=== PATIENT | female | born 2000 | race Caucasian/White ===

== ENCOUNTER 2022-05-22 11:49 | Emergency (ER) | payer SELFPAY ==
--- NOTE | ~2022-05-22 | CT_ITS ---
EXAMINATION: CT abdomen pelvis w con INDICATION: Upper abdominal pain TECHNIQUE: Computed tomographic images of the abdomen and pelvis were obtained after the administrati on of 100 cc of Omnipaque 350 intravenous contrast. The dose-length product (DLP) was 359.96 mGy-cm. Automated exposure control and iterative reconstruction technique were employed. COMPARISON: None available FINDINGS: The lung bases are clear. The heart size is normal. The liver, spleen, pancreas, gallbladde r, and adrenal glands are normal. The kidneys are unremarkable. No pathologically enlarged abdominal or pelvic lymph nodes are identified. There is no free intraperitoneal gas or evidence of bowel obstr uction. The appendix is normal. A contraceptive device is noted in the vagina. IMPRESSION: 1. No CT correlate for the patient's symptoms. Reviewed, dictated and finalized at location A.
[2022-05-22 11:53] VITALS: BP 122/93; PULSE 98; RESP 18; TEMP 36.3; O2SAT 100
[2022-05-22] MEDS: PANTOPRAZOLE SODIUM IV 40 MG VIAL IV PUSH (12:58)
[2022-05-22] MEDS: LACTATED RINGERS 1,000 ML 999 ML IV CONT (12:58)
[2022-05-22] MEDS: ONDANSETRON INJ 4 MG/2 ML VIAL IV PUSH (12:58)
--- NOTE | 2022-05-22 13:05 | ED.GENADULT ---
HPI - General Adult General Chief complaint: Back Pain/Injury Stated complaint: back pain Time Seen by Provider: 05/22/22 12:22 Source: patient Mode of arrival: ambulatory Limitations: no limitations History of Present Illness HPI narrative: This is a 22 year old female who presents for evaluation of abdominal pain. She states on wednesday she developed body aches, sore throat, nausea, vomiting and diarrhea. She went to urgent care yesterday and she was started on Amoxicillin for tonsillitis. Today she developed bilateral flank pain with hot flashes. She reports 2 episodes of diarrhea today but she denies vomiting today. She denies sick contacts. Related Data Allergies Allergy/AdvReac Type Severity Reaction Status Date / Time No Known Allergies Allergy Verified 05/22/22 12:34 Review of Systems Review of Systems: All systems reviewed & are unremarkable except as noted in HPI and below Constitutional: Constitutional: Reports chills and Reports fatigue ENT: Denies dizziness and Reports sore throat Gastrointestinal: Gastrointestinal: Reports abdominal pain, Reports diarrhea, Reports nausea and Reports vomiting Musculoskeletal: Musculoskeletal: Reports myalgias PMFSH Past Medical History Medical History (Updated 05/22/22 @ 16:44 by Mitra Mattson MD) Patient denies medical problems Surgical History Surgical History (Updated 05/22/22 @ 13:07 by Mitra Mattson MD) [facility] Social History Social History (Updated 05/22/22 @ 13:08 by Mitra Mattson MD) Smoking status: Never smoker Exam Narrative: GENERAL: Well-appearing, well-nourished, and in no acute distress. HEAD: Normocephalic, atraumatic EYES: PERRLA and EOMI, conjunctiva clear without discharge EARS: TM's clear bilaterally without erythema or dullness NOSE: Nares clear, no rhinorrhea or epistaxis THROAT:Mucous membranes moist, bilateral tonsillar enlargement with exudate, uvula midline NECK: Supple, without lymphadenopathy or mass RESPIRATORY: No respiratory distress, Airway patent, Respirations non-labored, Clear to auscultation without rales, rhonchi or wheeze HEART: Regular rate and rhythm. No murmur heard. Normal peripheral pulses. ABDOMEN: Soft, nontender, nondistended, normal active bowel sounds. No masses. No rebound or guarding, No organomegaly. EXTREMITIES: No edema, normal strength with full range of motion. SKIN: Warm, dry, normal color without rash NEURO: Alert and oriented x3. CN 2-12 grossly intact. No focal deficits. PSYCH: Normal mood and affect. Course Reevaluation(s) Reevaluation #1: Patients labs and testing are unremarkable. She is able to tolerate PO Date: 05/22/22 Time: 16:42 Vital Signs Vital signs: Vital Signs Temperature 97.4 F L 05/22/22 11:53 Pulse Rate 98 05/22/22 11:53 Respiratory Rate 18 05/22/22 11:53 Blood Pressure 122/93 H 05/22/22 11:53 Pulse Oximetry 100 05/22/22 11:53 Temperature 97.4 F L 05/22/22 11:53 Pulse Rate 80 05/22/22 16:30 Respiratory Rate 18 05/22/22 16:30 Blood Pressure 118/77 05/22/22 16:30 Pulse Oximetry 99 05/22/22 16:30 Medical Decision Making Vital Signs Vital Signs: Vital Signs Temperature 97.4 F L 05/22/22 11:53 Pulse Rate 98 05/22/22 11:53 Respiratory Rate 18 05/22/22 11:53 Blood Pressure 122/93 H 05/22/22 11:53 Pulse Oximetry 100 05/22/22 11:53 Temperature 97.4 F L 05/22/22 11:53 Pulse Rate 80 05/22/22 16:30 Respiratory Rate 18 05/22/22 16:30 Blood Pressure 118/77 05/22/22 16:30 Pulse Oximetry 99 05/22/22 16:30 Lab Data Lab results reviewed: Yes I reviewed the patient's lab results. Result diagrams: 05/22/22 12:07 05/22/22 12:07 Labs: Lab Results 05/22/22 05/22/22 05/22/22 Range/Units 12:07 12:07 13:15 WBC 8.6 (4.5-10.0) K/mm3 RBC 4.49 (4.2-5.4) M/mm3 Hgb 12.9 (12.0-15.0) g/dL Hct 39.8 (37.0-47.0) %
[2022-05-22 13:13] LABS: Alanine Aminotransferase 15 U/L (6-35); Albumin Level 4.2 g/dL (3.5-5.1); Alkaline Phosphatase 57 U/L (38-126); Anion Gap 16 mmol/L (8-16); Aspartate Amino Transferase 18 U/L (14-36); Bilirubin,Total 0.2 mg/dL (0.2-1.3); Blood Urea Nitrogen 7 mg/dL (7-17); Carbon Dioxide 23 mmol/L (22-30); Chloride 103 mmol/L (98-107); Estimated CRCL calculation 94 ml/min; Estimated Glomerular Filt Rate > 60; Glucose 103 mg/dL (65-110); Lipase 22 U/L (23-300); Potassium 4.1 mmol/L (3.4-5.0); Sodium 142 mmol/L (137-145)
[2022-05-22 13:47] LABS: Appearance Urine Clear (Clear); Bilirubin Urine Negative (Negative); Blood Urine Negative (Negative); Color Urine Yellow (Yellow); Glucose Urine UA Negative (Negative); Ketones Urine Negative (Negative); Leukocyte Esterase Ur Trace LEU/UL (Negative); Nitrate Urine Negative (Negative); Protein Urine Negative (Negative); Urobilinogen Urine 0.2 mg/dL (<2.0); pH Urine 6.5 (5.0-9.0)
[2022-05-22 13:47] LABS: Basophils Percent Auto 0.3 % (0.2-1.2); Eosinophils Percent Auto 0.1 % (0-4.4); Hematocrit 39.8 % (37.0-47.0); Hemoglobin 12.9 g/dL (12.0-15.0); Immature Granulocyte Absolute 0.03 K/mm3 (0.00-0.031); Immature Granulocyte Percent A 0.3 % (0-0.5); Lymphocytes Absolute Auto 1.81 K/mm3 (0.9-3.2); Lymphocytes Percent Auto 20.9 % (18.3-44.2); Mean Corpuscular HGB Conc 32.4 g/dl (32-36); Mean Corpuscular Hemoglobin 28.7 pg (26-34); Mean Corpuscular Volume 88.6 fl (80-100); Mean Platelet Volume 11.2 fl (7.4-10.4); Monocytes Absolute Auto 0.8 K/mm3 (0.1-0.6); Monocytes Percent Auto 9.7 % (2.6-8.5); Neutrophils Absolute Auto 5.9 K/mm3 (1.3-6.7); Neutrophils Percent Auto 68.7 % (45.5-73.1); Platelet Count Result 208 k/mm3 (150-375); Red Blood Count 4.49 M/mm3 (4.2-5.4); Red Cell Distribution Width 14.7 % (11.5-14.5); White Blood Count 8.6 K/mm3 (4.5-10.0)
[2022-05-22 13:55] LABS: Bacteria Urine Trace /hpf; Mucus Urine Rare /lpf; RBC Urine 0-2 /hpf (0-2); Squamous Epithelial Cell Urine Many /hpf (Few); WBC Urine 0-3 /hpf
[2022-05-22 13:56] LABS: Add Urine Microscopic? YES
[2022-05-22 14:57] LABS: Monoscreen Negative (Negative); Negative Monotest Control Negative (Negative); Positive Monotest Control Positive (Positive)
[2022-05-22 15:01] LABS: Influenza A QL RT-PCR Negative (Negative); Influenza B QL RT-PCR Negative (Negative); SARS-CoV-2 RNA PCR Negative
[2022-05-22] MEDS: KETOROLAC 30 MG/ML VIAL (*BKC) IV PUSH (15:52)
[2022-05-22 16:30] VITALS: BP 118/77; PULSE 80; RESP 18; O2SAT 99
== END 2022-05-22 16:52 | disposition home or self-care (01) ==
PROVIDERS: Emergency Provider General Practice
DX: B34.9 Viral infection, unspecified (principal); R11.2 Nausea with vomiting, unspecified; R10.12 Left upper quadrant pain; R10.11 Right upper quadrant pain; Z20.822 Contact with and (suspected) exposure to COVID-19
CPT/HCPCS: 36415; 74177; 80053; 81001; 81025; 83690; 85025; 86308; 87081; 87502; 87880; 96361; 96374; 96375; 99284; C9113; C9803; J1885; J2405; J7120; Q9967; U0003; U0005